=== PATIENT | female | born 1940 | race Caucasian/White ===

== ENCOUNTER 2025-01-17 08:35 | Outpatient (CLI) | payer MEDICARE | END 2025-01-17 08:36 | disposition home or self-care (01) | LOC: CSHSLEEP 08:35 | PROVIDERS: ATTEND Family Medicine | DX: G47.33 Obstructive sleep apnea (adult) (pediatric) (principal); R53.83 Other fatigue; R06.83 Snoring; G47.00 Insomnia, unspecified; I10 Essential (primary) hypertension | CPT/HCPCS: 95810 ==

== ENCOUNTER 2025-03-29 09:21 | Outpatient (CLI) | payer MEDICARE | END 2025-03-29 09:22 | disposition home or self-care (01) | LOC: CSHSLEEP 09:21 | PROVIDERS: ATTEND Family Medicine | DX: G47.33 Obstructive sleep apnea (adult) (pediatric) (principal); R53.83 Other fatigue; R06.83 Snoring; G47.00 Insomnia, unspecified; I10 Essential (primary) hypertension | CPT/HCPCS: 95811 ==